=== PATIENT | male | born 1955 | race Caucasian/White ===

== ENCOUNTER → 2016-11-17 | Outpatient (CLI) | payer OTHER | END | disposition home or self-care (01) | LOC: C.RDSM 15:48 | PROVIDERS: ATTEND Orthopaedic Surgery | DX: S62.617A Displaced fracture of proximal phalanx of left little finger, initial encounter for closed fracture (principal); X58.XXXA Exposure to other specified factors, initial encounter ==

== ENCOUNTER → 2016-11-22 | Outpatient (CLI) | payer OTHER | END | disposition home or self-care (01) | LOC: C.RDSM 13:00 | PROVIDERS: ATTEND Orthopaedic Surgery | DX: T14.8 Other injury of unspecified body region (principal); X58.XXXA Exposure to other specified factors, initial encounter ==

== ENCOUNTER → 2016-11-28 | Outpatient (CLI) | payer OTHER | END | disposition home or self-care (01) | LOC: C.RDSM 11:54 | PROVIDERS: ATTEND Orthopaedic Surgery | DX: M79.642 Pain in left hand (principal) ==

== ENCOUNTER → 2016-12-05 | Outpatient (CLI) | payer OTHER ==
--- NOTE | 2016-12-05 13:31 | DIAGNOSTIC IMAGING REPORT ---
L HAND MIN 3 VIEWS CLINICAL HISTORY: 61 years-old Male presenting with LEFT HAND PAIN. TECHNIQUE: Frontal, oblique, and lateral views of the left hand were obtained. COMPARISON: 11/28/2016. FINDINGS: Partially visualized buttress plate and screw fixation of the distal radial metaphysis. Radiocarpal articulation intact. Fracture of the base of the proximal phalanx of the fifth finger with mild apex volar angulation and diastases at the volar aspect. The fracture plane remains evident. No evidence of bridging callus formation. This does not appear to involve the fifth metacarpophalangeal articulation. IMPRESSION: Extra-articular fracture of the base of the proximal phalanx of the fifth finger. Fracture plane remains evident without bridging callus formation. Electronically signed by: Charles Mcfadden M.D. 12/05/2016 1:29 PM Dictated Date/Time: 12/05/2016 1:27 PM
== END | disposition home or self-care (01) ==
LOC: C.RDSM 09:58
PROVIDERS: ATTEND Physician Assistant
DX: M79.642 Pain in left hand (principal)

== ENCOUNTER → 2016-12-12 | Outpatient (CLI) | payer OTHER | END | disposition home or self-care (01) | LOC: C.RDSM 12:18 | PROVIDERS: ATTEND Orthopaedic Surgery | DX: S62.607A Fracture of unspecified phalanx of left little finger, initial encounter for closed fracture (principal); X58.XXXA Exposure to other specified factors, initial encounter ==

== ENCOUNTER → 2017-01-04 | Outpatient (CLI) | payer OTHER | LOC: C.RDSM 10:53 | PROVIDERS: ATTEND Orthopaedic Surgery | DX: T14.8XXA Other injury of unspecified body region, initial encounter (principal); X58.XXXA Exposure to other specified factors, initial encounter ==